=== PATIENT | female | born 1975 | race Caucasian/White ===

== ENCOUNTER 2016-12-04 21:20 | Observation (INO) ==
[2016-12-04] MEDS ORDERED: *HR* HYDROmorphone (PF) 1 MG/ML SYRINGE IVP PRN (23:02)
[2016-12-04] MEDS ORDERED: D5% in 0.9% NACL 1,000 ML IVC SCH (23:15)
[2016-12-04] MEDS ORDERED: FLUARIX QUAD 2017-18 36MOS UP/PF 0.5 ML SYRINGE IM ONE (23:19)
--- NOTE | 2016-12-05 00:12 | General Surg History&Physical ---
Date of Encounter: 12/05/16 Time of Encounter: 00:09 Assessment and Plan (1) Acute appendicitis Current Visit: Yes Status: Acute 41F with acute appendicitis; concern for possible gangrenous vs perforated appendix due to duration of pain; - NPO -IVF -abx: zosyn - lap appy; morphine for pain control activity as tolerated dvt prophylaxis vitals/I&o q4hrs The assessment and plan as outlined above was discussed with the patient and/or family members who expressed understanding and agreement. All questions were answered. Qualifiers: Acute appendicitis type: with localized peritonitis Qualified Code(s): K35.3 - Acute appendicitis with localized peritonitis (2) Abdominal pain Current Visit: Yes Status: Acute see above The assessment and plan as outlined above was discussed with the patient and/or family members who expressed understanding and agreement. All questions were answered. Qualifiers: Abdominal location: right lower quadrant Qualified Code(s): R10.31 - Right lower quadrant pain History of Present Illness Chief complaint: abdominal pain HPI: Ms. Hernández is a 41 year old female otherwise healthy who presents with 6 day history of worsening abdominal pain, primarily along the RLQ. The pain is now associated with nausea and vomiting and poor PO intake. No reports of fevers. The patient did attempt a muscle relaxant for pain control, but it was inadequate. Due to the pain worsening the patient went to the ED for further management. She was subsequently transferred to [facility] for surgical evaluation. Past Med Surg Social Fam HX - Past Medical History Medical history: no medical history Psychiatric history: depression - Past Surgical History Surgical History: no surgical history - Social History Smoking Status: Never smoker Smokeless Tobacco Status: No Alcohol use: none Drug use: none - Additional Family History Additional family history: non contributory Medications and Allergies No Known Home Drugs 12/04/16 [History] 3 Allergy/AdvReac Type Severity Reaction Status Date / Time codeine Allergy Rash Verified 01/08/16 14:34 Review of Systems All systems PM: A 10-system review of systems was performed and is negative for pertinent findings except as documented above in the HPI. General Surgery Exam Initial Vital Signs Temp Pulse Resp BP Pulse Ox 98.4 F 83 14 108/74 97 12/04/16 23:13 12/04/16 23:13 12/04/16 23:13 12/04/16 23:13 12/04/16 23:13 - General physical appearance well developed, well nourished, no distress - Eyes other (no scleral icterus), normal ocular movement - ENT atraumatic, normocephalic - Neck no lymphadectomy - Respiratory normal expansion, normal respiratory effort, clear to percussion, clear to auscultation - Cardiovascular Cardiovascular exam: Present: RRR - Abdomen Abdomen general surgery: Present: bowel sounds present, soft, tender Abdominal Tenderness: Present: RLQ ((+) TTP at McBurney's point) Hernia: Present: none - Integumentary Integumentary general surgery: Present: warm and dry - Neurologic Present: CN 2-12 grossly intact - Musculoskeletal Present: other (no edema) - Psychiatric Psychiatric general surgery: Present: A&Ox3, appropriate Results - Labs Pertinent labs: WBC: 14.4; - Imaging CT scan - abdomen: report reviewed, image reviewed CT scan - pelvis: report reviewed, image reviewed (stranding around appendix; no abscess;)
[2016-12-05] MEDS ORDERED: Metoclopramide 10 MG/2 ML VIAL IVP ONE (00:52)
[2016-12-05] MEDS ORDERED: Famotidine 20 MG/2 ML VIAL IVP ONE (00:52)
[2016-12-05] MEDS ORDERED: Lidocaine -MPF 4% 5 ML AMPUL ONE (00:56)
[2016-12-05] MEDS ORDERED: *HR* Rocuronium Bromide 50 MG/5 ML VIAL ONE (00:56)
[2016-12-05] MEDS ORDERED: *HR* FentaNYL (PF) 100 MCG/2 ML VIAL ONE (00:56)
[2016-12-05] MEDS ORDERED: Lidocaine -MPF 2% 2 ML VIAL ONE ×2 (00:56→00:57)
[2016-12-05] MEDS ORDERED: *HR* Succinylcholine 200 MG/10 ML VIAL IVP ONE (00:56)
[2016-12-05] MEDS ORDERED: *HR* Propofol 200 MG/20 ML VIAL IVP ONE (00:57)
[2016-12-05] MEDS ORDERED: *HR* Midazolam HCl 2 MG/2 ML VIAL ONE (00:57)
[2016-12-05] MEDS ORDERED: Acetaminophen IV 1,000 MG/100 ML INFUS..BTL ONE (01:02)
--- NOTE | 2016-12-05 01:12 | Anesthesia Evaluation PreOp ---
Date of Encounter: 12/05/16 Time of Encounter: 00:45 - Past History Planned Operation: Lap Appy Cardiac History: Denies any Significant Hx Pulmonary History: Denies Any Significant HX DRY FOLDER CLOTH History: Denies Any Significant HX Other Medical History: Denies Any Significant HX Anesthesia History: No Prior Anesthetic Complications, Past Anesthesia (BTL, Uterine ablation/D&C) Test: Negative Alcohol Use: none Drug use: none Medications and Allergies No Known Home Drugs 12/04/16 [History] 3 Allergy/AdvReac Type Severity Reaction Status Date / Time codeine Allergy Rash Verified 01/08/16 14:34 - Meds/Allergy Pre-op Review Medications Reviewed: Yes Allergies Reviewed: Yes Beta Blockers on Current Med List: No Anesthesia Results - Labs Laboratory Tests 12/04/16 12/04/16 12/04/16 20:14 20:14 20:14 WBC 14.4 H Hgb 13.5 Hct 40.6 Plt Count 194 Sodium 138 Potassium 4.8 H Chloride 104 Carbon Dioxide 20 BUN 8 Creatinine 0.69 Est GFR (Non-Af Amer) > 60 Glucose 154 H Serum , Qual Negative Anesthesia Exam O2 Sat Height 1.5 m Weight 63.957 kg O2 Sat by Pulse Oximetry 100 O2 Sat by Pulse Oximetry 97 Vital Signs Temp Pulse Resp BP Pulse Ox 98.4 F 83 14 108/74 97 12/04/16 23:13 12/04/16 23:13 12/04/16 23:13 12/04/16 23:13 12/04/16 23:13 Height: 4'11" Weight: 141# BMI = 28.5 NPO (# of Hours): 1500 - HEENT Pupil (Motor): Pupils equal, EOMI Mallampati: II Teeth: Poor dentition Oral Opening: Greater than 3 - DRY FOLDER CLOTH LOC: Oriented DRY FOLDER CLOTH Motor: Normal RUE, Normal LUE, Normal RLE, Normal LLE, Normal Face DRY FOLDER CLOTH Sensory: Normal: RUE, LUE, RLE, LLE, Face - Cardiac Rhythm: Regular Murmur: None - Pulmonary Breath Sounds: bilateral Clear Respiratory Effort: Symmetrical Anesthesia Assess/Plan ASA Score: 2, E Modified Lincoln Scale for Level of Consciousness: Cooperative, oriented, and tranquil Anesthetic Plan: General Monitoring Plan: Standard Monitors Recovery Plan: PACU Anes Supervising Prov Stmt: Pt seen/evaluated, R&B Discussed, questions answered and consent obtained. Jovanny Ma MD
[2016-12-05] MEDS ORDERED: EPHEDrine 50 MG/ML VIAL ONE (01:36)
[2016-12-05] MEDS ORDERED: Ondansetron 4 MG/2 ML VIAL ONE (01:46)
[2016-12-05] MEDS ORDERED: Dexamethasone 4 MG/ML VIAL ONE (01:46)
[2016-12-05] MEDS ORDERED: Ketorolac 30 MG/ML VIAL ONE (01:47)
[2016-12-05] MEDS ORDERED: Neostigmine Methylsulfate 3 MG/3 ML SYRINGE ONE (01:50)
[2016-12-05] MEDS ORDERED: Piperacillin/Tazobactam 3.375 GM in 0.9 % Sodium Chloride Mini Bag 100 ML IVPB SCH (02:00)
[2016-12-05] MEDS ORDERED: *HR* OxyCODONE/APAP 5/325 TABLET PO PRN (02:32)
--- NOTE | 2016-12-05 02:36 | Operative Note ---
Date of procedure: 12/05/16 Pre-op diagnosis: acute appendicitis Post-op diagnosis: same Procedure: laparoscopic appendectomy Implants: none Complications: none Anesthesia: GETA Local Anesthetics: 0.5% Sensorcaine HCL SubQ (cc) Surgeon: Jung Godwin Slip Cover Cutter Other: Charlie Parry Estimated blood loss (cc): 10 Specimen: appendix Condition: stable Disposition: PACU Procedure in Detail: The patient was brought into the operating room suite. The patient was placed in the supine position. Mechanical DVT prophylaxis was initiated. The patient underwent smooth induction of general endotracheal anesthesia. The patient was prepped and draped in the usual fashion. Preoperative antibiotics were given. A timeout was held identifying the correct patient, pathology, and procedure. Everyone was in agreement and we began a procedure. I started by creating a supraumbilical incision and via open Richards technique entered into the abdomen. I then used a Vicryl suture on a UR 6 needle in a [id number] fashion to reapproximate but not close the fascia. I then inserted the 10 trocar followed by the camera to visualize the intraabdominal cavity. I then created a 5 mm incision suprapubically and inserted the 5 mm trocar under direct visualization. Roughly 1 handbreadth lateral to the umbilical incision I created another 5 mm incision and inserted another 5 mm trocar under direct visualization. I then inserted the nontraumatic instruments into the 5 mm ports and began the procedure. I was able to identify the tinea coli coalescing at the base of the cecum to identify the appendix. Using the nontraumatic grasper I was able to grasp the appendix and then using the [place] dissector was able to create a mesenteric window. I then inserted the nontraumatic grasper into the same mesenteric window to widen it. Should be stated that the appendix was acutely inflamed with a normal segment near the base. I then grasped the appendix and switched from the 10 mm camera to the 5 mm camera so that we can insert the stapler through the umbilical port. The teeth of the stapler through the mesenteric window. It should be stated that the stapler was a 45 mm bowel load stapler. It was positioned at the base of the appendix and I was able to confirm under direct visualization that the teeth contained no other structures such as the cecum. I then fired the stapler and resected the appendix from the base of the cecum. I then loaded up a vascular load stapler and then in the similar fashion did fire across the mesentery. I then inserted the Endo Catch bag to retrieve the specimen which was intact upon retrieval. I then switched back to the 10 mm camera and inserted the nontraumatic grasper as well as a suction- enthone solder stripper into the 5 mm ports. And under direct visualization I was able to appreciate the staple line of the mesoappendix as well as the staple line of the base of the cecum. There was no obvious leaking nor bleeding. There was a small fluid collection in the pelvis which was suctioned; There was also an ovarian cyst on the Lefto ovary that was visualized. I then concluded the procedure, turned off the insufflation, removed the trochars under direct visualization, and then closed the umbilical fascia using the Vicryl suture that was placed at the beginning. I then closed all incisions with interrupted 4-0 Monocryl. And then sealed with Dermabon. It should be stated that I did use 0.5% Marcaine as a local anesthetic. The patient tolerated the procedure well and did go back to PACU in stable condition.
[2016-12-05] MEDS ORDERED: *HR* Promethazine 25 MG/ML VIAL IVP PRN (02:40)
[2016-12-05] MEDS ORDERED: *HR* Labetalol 20 MG/4 ML SYRINGE IVP PRN (02:40)
[2016-12-05] MEDS ORDERED: *HR* HYDROmorphone (PF) 1 MG/ML SYRINGE IVP PRN (02:40)
--- NOTE | 2016-12-05 03:05 | Anesthesia Evaluation Post Op ---
Date of Encounter: 12/05/16 Time of Encounter: 03:04 - Vital Signs Vital Signs: Vital Signs/O2 Sat/Glucose, Most Current Temp Pulse Resp BP Pulse Ox 12/05/16 03:00 97.8 F 77 16 105/63 99 12/05/16 02:50 99 17 100/59 100 12/05/16 02:40 90 16 102/61 99 12/05/16 02:30 98 F 87 16 96/57 96 12/05/16 00:54 98.2 F 88 16 103/68 100 12/04/16 23:13 98.4 F 83 14 108/74 97 - Lungs Lungs: Clear Ascult./Percussion - Airway Airway: Non-obstructed - Cardiovascular Regular Rate - Mental Status Mental Status: Alert & Oriented, Answers Appropriately, Asleep with brisk response to light stimulation - Pain Pain Scale: 0 Pain Scale used: Numeric (1 - 10) - Nausea Vomiting Nausea Vomiting: Not Present - Hydration Hydration: Ice chips, Has not voided - Discharge PostOp Status: Transfer Patient to floor Anes Supervising Prov Stmt: Pt seen/evaluated, VSS and pt has met criteria for discharge to floor. - MD Anil
[2016-12-05] MEDS ORDERED: D5% in 0.9% NACL 1,000 ML IVC SCH (04:09)
[2016-12-05] MEDS ORDERED: Piperacillin/Tazobactam 3.375 GM in D5% in Water (Mini-Bag+) 100 ML IVPB SCH ×3 (06:00→14:00)
[2016-12-05] MEDS ORDERED: *HR* Enoxaparin 40 MG/0.4 ML SYRINGE SQ SCH ×2 (06:00)
[2016-12-05] MEDS ORDERED: Ondansetron 4 MG/2 ML VIAL IVP PRN (09:10)
[2016-12-05] MEDS ORDERED: Ketorolac 15 MG/ML VIAL IVP SCH (09:15)
--- NOTE | 2016-12-05 09:16 | Discharge Summary ---
<Emma Edwards Bola - Last Filed: 12/05/16 09:37> Date of Encounter: 12/05/16 Time of Encounter: 09:00 - Discharge Diagnosis (1) Acute appendicitis Priority: Primary Status: Resolved Qualifiers: Acute appendicitis type: with localized peritonitis Qualified Code(s): K35.3 - Acute appendicitis with localized peritonitis - Discharge Medications Prescriptions: Ondansetron ODT [Zofran ODT] 4 mg SL Q4HR #30 tab.rapdis OxyCODONE/APAP 5/325 [Percocet 5/325 MG] 1 each PO Q4HR PRN #30 tablet PRN Reason: Pain Ibuprofen [Motrin] 800 mg PO Q8HR #50 tablet Docusate [Colace] 100 mg PO BID #30 capsule Home Medications: Docusate [Colace] 100 mg PO BID #30 capsule 12/05/16 [Rx] Ibuprofen [Motrin] 800 mg PO Q8HR #50 tablet 12/05/16 [Rx] Ondansetron ODT [Zofran ODT] 4 mg SL Q4HR #30 tab.rapdis 12/05/16 [Rx] OxyCODONE/APAP 5/325 [Percocet 5/325 MG] 1 each PO Q4HR PRN #30 tablet 12/05/16 [Rx] Allergies/Adverse Reactions: 3 Allergy/AdvReac Type Severity Reaction Status Date / Time codeine Allergy Rash Verified 01/08/16 14:34 General Surgery Exam Initial Vital Signs Temp Pulse Resp BP Pulse Ox 98.4 F 83 14 108/74 97 12/04/16 23:13 12/04/16 23:13 12/04/16 23:13 12/04/16 23:13 12/04/16 23:13 - General physical appearance well developed, well nourished, no distress, moderate pain - Eyes normal ocular movement - ENT normal mucosa, atraumatic, normocephalic - Neck trachea midline - Respiratory normal respiratory effort, clear to auscultation - Cardiovascular Cardiovascular exam: Present: RRR - Abdomen Abdomen general surgery: Present: bowel sounds present, soft, tender (Expected postoperative tenderness) - Incision Incision: Present: clean and dry, intact - Integumentary Integumentary general surgery: Present: warm and dry - Neurologic Present: CN 2-12 grossly intact - Musculoskeletal Present: normal gait, normal posture - Psychiatric Psychiatric general surgery: Present: appropriate, oriented to person, oriented to place, oriented to time, speech is normal, memory intact Date of admission: 12/04/16 22:52 Primary care physician: PCP KEELY Discharging clinician: Jung Godwin ([facility]) Anticipated date of discharge: 12/05/16 - Patient Status Disposition: Home, Self-Care Condition: Good Functional capacity at discharge: independent ambulation Overall status at discharge: patient is progressing back to baseline - Discharge Instructions Follow Up With: NONE,PCP [Primary Care Provider] - Charity Oviedo, PSYCHOLOGIST RESEARCH ASSISTANT [Advanced Practice Nurse] - 12/19/16 10:00 am (surgery follow-up) Additional Instructions: #1 may shower 12/06/16, no tub bath for 2 weeks #2 wash incisions with soap and water and pat dry daily #3 no lifting, pushing, pulling more than 15 pounds for the next 2 weeks #4 no driving until off narcotics for 24 hours and able to safely react in the car #5 may climb stairs - Diet and Activity Activity: other (See additional instructions above) Diet: advance to your usual diet - Hospital Course Hospital course: Ms. Hernández is a 41 year old female who presented to the hospital with a history of abdominal pain with associated nausea and vomiting. The patient was found to have acute appendicitis on CT scan evaluation. She was started on IV antibiotics and taken to the operating room with Dr. Godwin for a laparoscopic appendectomy. On postoperative day #1, she states that she is feeling much better and her preoperative pain has resolved. She did experience postoperative nausea and we will control this with supportive measures. We will begin discharge planning to home when the patient meets discharge criteria including tolerating a diet without nausea or vomiting, vital signs are stable and afebrile, pain is well-controlled, voiding and ambulating without difficulty. We will plan for outpatient follow-up in the next 10-14 days. - Time Spent with Patient Total time spent providing and/or coordinating discharge services: Less than 30 minutes <Charity Oviedo - Last Filed: 12/05/16 13:59> Date of Encounter: 12/05/16 - Discharge Diagnosis (1) Acute appendicitis Priority: Primary Status: Resolved Qualifiers: Acute appendicitis type: with localized peritonitis Qualified Code(s): K35.3 - Acute appendicitis with localized peritonitis General Surgery Exam Initial Vital Signs Temp Pulse Resp BP Pulse Ox 98.4 F 83 14 108/74 97 12/04/16 23:13 12/04/16 23:13 12/04/16 23:13 12/04/16 23:13 12/04/16 23:13 - General physical appearance well developed, well nourished, no distress Date of admission: 12/04/16 22:52 Primary care physician: PCP NONE - Patient Status Functional capacity at discharge: independent ambulation Overall status at discharge: patient is progressing back to baseline - Diet and Activity Activity: other Diet: advance to your usual diet - Hospital Course Hospital course: Ms. Hernández is a 41 year old female - Time Spent with Patient Total time spent providing and/or coordinating discharge services:
[2016-12-05 10:07] VITALS: BP 100/66
[2016-12-05] MEDS ORDERED: FLUARIX QUAD 2017-18 36MOS UP/PF 0.5 ML SYRINGE IM ONE (14:49)
== END 2016-12-05 17:15 | disposition home or self-care (01) ==
LOC: 3ANU
PROVIDERS: ADMIT Surgery; ATTEND Surgery